=== PATIENT | male | born 1940 | race Caucasian/White ===

== ENCOUNTER 2016-06-23 10:33 | Emergency (ER) | payer MEDICARE, BC ==
[~2016-06-23] VITALS: Ht 180.3 cm; Wt 95.5 kg
[~2016-06-23 10:33] MED LIST: ATIVAN1 MG PO; ATORVASTATIN CA10 MG PO; LANTUS100 MG/ML SC; LISINOPRIL20 MG PO; SPIRIVA HANDIHALER IN; VICTOZA18 MG/3 ML SC
[2016-06-23] MEDS ORDERED: LORAZEPAM0.5 MG PO (11:07)
[2016-06-23] MEDS ORDERED: FLOXIN OTIC0.3 % OD (11:27)
[2016-06-23] MEDS ORDERED: AMOXICILLIN/PO500 MG PO (11:27)
[2016-06-23 11:35] VITALS: BP 140/72
[2016-06-23] MEDS ORDERED: FLOXIN OTIC0.3 % AD (11:35)
[2016-06-23] MEDS ORDERED: ATIVAN1 MG PO (11:42)
[2016-06-23] MEDS ORDERED: LANTUS100 UNIT/M SC (11:42)
== END 2016-06-23 11:35 | disposition home or self-care (01) ==
LOC: ED 10:33
DX: H66.91 Otitis media, unspecified, right ear (principal); H92.01 Otalgia, right ear; H93.8X1 Other specified disorders of right ear

== ENCOUNTER → 2018-04-30 | Outpatient (REF) | payer MEDICARE, BC ==
[~2018-04-30] MED LIST changes: +AMOXICILLIN/PO500 MG PO; +FLOXIN OTIC0.3 % AD; +FLOXIN OTIC0.3 % OD; +LANTUS100 UNIT/M SC; +LORAZEPAM0.5 MG PO
[2018-04-30 10:20] LABS: ALBUMIN 4.2 g/dL (3.2-5.0); BILIRUBIN, TOTAL 0.6 mg/dL (0.0-1.4); CREATININE 1.9 mg/dL (0.7-1.3); TOTAL PROTEIN 7.2 g/dL (6.3-8.2)
[2018-04-30 10:24] LABS: POTASSIUM 5.2 mmol/l (3.5-5.1)
[2018-04-30 10:52] LABS: TSH, 3RD GENERATION 5.83 uIU/mL (0.47 - 4.68)
== END | disposition home or self-care (01) ==
LOC: LAB 09:17
PROVIDERS: ATTEND Internal Medicine Endocrinology, Diabetes & Metabolism
DX: E03.9 Hypothyroidism, unspecified (principal); E11.42 Type 2 diabetes mellitus with diabetic polyneuropathy; E55.9 Vitamin D deficiency, unspecified

== ENCOUNTER 2018-08-21 09:18 | Inpatient (IN) | payer MEDICARE, BC ==
[~2018-08-21] VITALS: Ht 180.3 cm; Wt 91.3 kg
--- NOTE | 2018-08-21 09:25 | NUR ---
PT IMMEDIATELY TO ROOM 9 FOR EVALUATION. SIGNIFICANT OTHER AT BEDSIDE.
[2018-08-21] MEDS ORDERED: FIASP100 UNIT/M SC (09:50)
[2018-08-21] MEDS ORDERED: ASPIRIN ADULT L81 MG PO (09:54)
[2018-08-21] MEDS ORDERED: JARDIANCE10 MG PO (09:55)
[2018-08-21] MEDS ORDERED: PRESERVISION PO (09:58)
[2018-08-21 10:08] LABS: HEMATOCRIT 40.7 % (39.0-50.0); HEMOGLOBIN 12.8 g/dl (14.0-18.0); IMMATURE GRANULOCYTES 1.5 % (0.0-5.0); MEAN CELL VOLUME 97.8 fL CALC (80.0-100.0); MEAN CORPUSCULAR HGB 30.8 pG CALC (26.0-32.0); MEAN CORPUSCULAR HGB CONC 31.4 g/L CALC (32.0-36.0); NEUT# 19.71 thou/uL (1.82-7.42); RED BLOOD COUNT 4.16 mill/uL (4.70-6.10); RED CELL DISTRI WIDTH 13.9 % (11.5-15.5)
--- NOTE | 2018-08-21 10:20 | NUR ---
PT RESTING ON STRETCHER, OFFERS NO NEW COMPLAINTS, CALL OCONNOR WITHIN REACH
[2018-08-21 10:30] LABS: ALBUMIN 3.4 g/dL (3.2-5.0); BILIRUBIN, TOTAL 0.7 mg/dL (0.0-1.4); CREATININE 1.7 mg/dL (0.7-1.3); POTASSIUM 4.8 mmol/l (3.5-5.1); TOTAL PROTEIN 7.4 g/dL (6.3-8.2)
--- NOTE | 2018-08-21 11:06 | NUR ---
PT RESTING, COUGH PRODUCTIVE OF GREENISH KEMP SPUTUM SPECIEMN SENT EARLIER, VISITORS AT BEDSIDE, WILL CONTINUE TO MONITOR.
--- NOTE | 2018-08-21 11:19 | NUR ---
PATIENT AND SPOUSE AWARE OF PLANNED ADMISSION. NO OBJECTIONS VOICED
--- NOTE | 2018-08-21 12:47 | NUR ---
REPORT CALLED TO SIA CORDOBA ON MED SURG ROOM 261 ASSIGNED ALONG WITH TELE BOX [id number]
--- NOTE | 2018-08-21 12:55 | NUR ---
PT TRANSFERRED TO MED SURG VIA WHEELCHAIR, ALL BELONGINGS SENT WITH PT. TELE BOX 0633 ON PT
--- NOTE | 2018-08-21 13:00 | NUR ---
PT ARRIVED TO FLOOR @ 1255 VIA WC ACCOMPANIED BY BERYL ZAPATA. PT AMBULATES INDEPENDENTLY. REPORTS GENERALIZED WEAKNESS. DENIES DIZZINESS. NO PAIN. REPORTING OF CONCERNS ENCOURAGED. PT ORIENTED TO ROOM AND EQUIPMENT. CALL LIGHT REVIEWED AND IN REACH. PLAN OF CARE DISCUSSED. PT STATES UNDERSTANDING.
--- NOTE | 2018-08-21 13:15 | NUR ---
PT LEFT FLOOR VIA WC ACCOMPANIED BY VOLUNTEER, DESTINATION CT.
[2018-08-21 13:19] VITALS: BP 97/60
--- NOTE | 2018-08-21 13:35 | NUR ---
PT ARRIVED BACK TO ROOM. REPORTS TOLERATING CT WELL.
[2018-08-21 16:12] VITALS: BP 138/71
--- NOTE | 2018-08-21 18:16 | NUR ---
PT CONSENTED TO HIV LAB TESTING SUGGESTED BY DR. ARAGON. REQUESTS RESULTS WHEN BACK. PT. NOTIFIED RESULTS WERE NEGATIVE.
--- NOTE | 2018-08-21 19:34 | NUR ---
PT. SITTING UP IN BED WITH NO DISTRESS NOTED. DENIES PAIN AND REPORTS HE FEELS MUCH BETTER. ASSESSEMENT COMPLETED AND UPDATED ON POC. IV SITE PATENT AND SL. SNACK PROVIDED. CALL LIGHT IS IN REACH. WILL CONTINUE TO MONITOR.
[2018-08-21 19:40] VITALS: BP 129/47
[2018-08-21 21:47] VITALS: BP 118/48
--- NOTE | 2018-08-21 21:47 | NUR ---
REASSESSED B/P 118/48 AND SCHED MEDICATIONS GIVEN. URINAL EMPTIED. CALL LIGHT IS IN REACH. WILL CONTINUE TO MONITOR.
[2018-08-21 23:53] VITALS: BP 118/42
--- NOTE | 2018-08-21 23:57 | NUR ---
RESTING IN BED WITH NO DISTRESS NOTED. INTERMITTENT PRODUCTIVE COUGH. VS OBTAINED AND SCHE ABT HUNG. VOICES NO CONCERNS. CALL LIGHT IS IN REACH.
--- NOTE | 2018-08-22 02:04 | NUR ---
PT. RESTING IN BED ON LEFT SIDE; DENIES NEEDS AND VOICES NO CONCERNS. CALL LIGHT IS IN REACH.
[2018-08-22 04:00] VITALS: BP 106/54
[2018-08-22 05:20] LABS: ALKALINE PHOSPHATASE 146 u/l (38-126); BUN 40 mg/dL (8-23); BUN/CREATININE RATIO 26 (12-20 (CALC)); CHLORIDE 112 mmol/l (95-108); CREATININE 1.5 mg/dL (0.7-1.3); GFR 45 ML/MIN (>=60 (CALC)); GFR FOR AFR.AMER. 55 ML/MIN (>=60 (CALC)); LIPASE 44 u/l (23-300); MAGNESIUM 2.7 mg/dL (1.6-2.3); POTASSIUM 4.8 mmol/l (3.5-5.1); SGOT/AST 47 u/l (19-48); SODIUM 140 mmol/l (137-146)
[2018-08-22 05:25] LABS: IMMATURE GRANULOCYTES 1.6 % (0.0-5.0); MEAN CELL VOLUME 96.1 fL CALC (80.0-100.0); MEAN CORPUSCULAR HGB 30.7 pG CALC (26.0-32.0); NEUT# 11.78 thou/uL (1.82-7.42); RED BLOOD COUNT 3.32 mill/uL (4.70-6.10); RED CELL DISTRI WIDTH 13.9 % (11.5-15.5)
[2018-08-22 05:26] LABS: ALBUMIN 2.3 g/dL (3.2-5.0); AMYLASE < 30 u/l (30-110); ANION GAP 11 (6-22 (CALC)); BILIRUBIN, TOTAL 0.4 mg/dL (0.0-1.4); CARBON DIOXIDE 22 mmol/l (22-30); TOTAL PROTEIN 5.6 g/dL (6.3-8.2)
[2018-08-22 05:52] LABS: HEMATOCRIT 31.9 % (39.0-50.0); HEMOGLOBIN 10.2 g/dl (14.0-18.0)
--- NOTE | 2018-08-22 06:30 | NUR ---
PT. IS ASSISTED WITH A SHOWER AND LINENS CHANGED. PROVIDED WITH MESCH PAINTIES AND PAD. INCENTIVE SPIROMTER EDUCATION PROVIDED AND PT. IS ABLE TO PULL 750 AND DID 5 REPS; EDUCATED ON USE OF 10X'S AN HOUR WHILE AWAKE; VERBALIZES UNDERSTANDING. PT. ASSISTED INTO RECLINER. DENIES NEEDS. BS IS 70; JUICE PROVIDED. ENCOURAGED TO CALL FOR ANY NEEDS. CALL LIGHT IS IN REACH.
--- NOTE | 2018-08-22 07:22 | NUR ---
REPORT RECEIVED FROM BERYL SMALL. PT SLEEPING AT THIS TIME. CALL LIGHT WITHIN REACH.
[2018-08-22 07:46] VITALS: BP 127/45
--- NOTE | 2018-08-22 08:23 | NUR ---
PT SITTING IN CHAIR AT BEDSIDE. PLAN OF CARE DISCUSSED. PT DENIES PAIN/DISCOMFORT AT THIS TIME. REPORTING OF CONCERNS ENCORUAGED. PLAN OF CARE DISCUSSED. INCENTIVE SPIROMETER USE ENCOURAGED. CALL LIGHT REVIEWED AND IN REACH. PT STATES UNDERSTANDING.
[2018-08-22 11:00] VITALS: BP 111/33
--- NOTE | 2018-08-22 12:38 | NUR ---
DR. ARAGON IN TO SEE PT. PLAN OF CARE UPDATED. PT LEFT FLOOR VIA WC ACCOMPANIED BY VOLUNTEER, DESTINATION ECHO.
--- NOTE | 2018-08-22 14:01 | NUR ---
PT RETURNED TO FLOOR VIA WC FROM ECHO, PT STATES TOLERATED TESTING WELL.
[2018-08-22 16:05] VITALS: BP 106/71
--- NOTE | 2018-08-22 16:38 | NUR ---
PT SUPINE IN BED. INQUIRING ABOUT IV ABX SCHEDULED. MED SCHEDULES REVIEWED. PT STATES UNDERSTANDING.
[2018-08-22 19:09] VITALS: BP 129/57
--- NOTE | 2018-08-23 00:04 | NUR ---
IV ZOSYN INITIATED, VITALS OBTAINED. PT VOICES NO NEEDS OR COMPLAINTS AT THIS TIME. CALL LIGHT IN REACH,CONTINUE TO MONITOR.
[2018-08-23 00:30] VITALS: BP 123/56
[2018-08-23 04:06] VITALS: BP 134/73
[2018-08-23 05:14] LABS: HEMATOCRIT 32.9 % (39.0-50.0); HEMOGLOBIN 10.5 g/dl (14.0-18.0); IMMATURE GRANULOCYTES 1.6 % (0.0-5.0); MEAN CELL VOLUME 95.6 fL CALC (80.0-100.0); MEAN CORPUSCULAR HGB 30.5 pG CALC (26.0-32.0); MEAN CORPUSCULAR HGB CONC 31.9 g/L CALC (32.0-36.0); NEUT# 10.79 thou/uL (1.82-7.42); RED BLOOD COUNT 3.44 mill/uL (4.70-6.10); RED CELL DISTRI WIDTH 13.9 % (11.5-15.5)
[2018-08-23 05:41] LABS: ALBUMIN 2.4 g/dL (3.2-5.0); BILIRUBIN, TOTAL 0.4 mg/dL (0.0-1.4); CREATININE 1.4 mg/dL (0.7-1.3); MAGNESIUM 2.5 mg/dL (1.6-2.3); POTASSIUM 4.7 mmol/l (3.5-5.1); TOTAL PROTEIN 5.8 g/dL (6.3-8.2)
--- NOTE | 2018-08-23 06:10 | NUR ---
IV LEAKING, REMOVED IV, CATHETER INTACT. NEW IV OBTAINED AFTER 1 ATTEMPT.ZOSYN INFUSION CONTINUED. PT VOICES NO NEEDS OR COMPLAINTS AT THIS TIME. CALL LIGHT IN REACH,CONTINUE TO MONITOR.
--- NOTE | 2018-08-23 07:00 | NUR ---
SHIFT CHANGE REPORT, PT SLEEPING BUT AWAKENED TO VERBAL STIMULI, NO C/O PAIN, COUGHING AT THIS TIME, TELE MONITOR IN PLACE, ALL NEEDS ADDRESSED, CALL OCONNOR IN REACH.
[2018-08-23 09:07] VITALS: BP 115/62
[2018-08-23 11:05] VITALS: BP 138/63
--- NOTE | 2018-08-23 12:00 | NUR ---
RESTING IN BED, DR ARAGON ROUNDED AND DISCUSSED PLAN OF CARE TO INTRODUCE NEW ANTIBIOTIC FOR CONTINUED CARE, PT STATED UNDERSTANDING.
[2018-08-23 16:02] VITALS: BP 131/63
--- NOTE | 2018-08-23 16:49 | NUR ---
RELAXING IN ROOM, ALL NEEDS ADDRESSED.
--- NOTE | 2018-08-23 19:27 | NUR ---
REPORT FROM PARVIN CORDOBA. PT ALERT AND ORIENTED X3. RESPIRATIONS EVEN AND UNLABORED. DENIES ANY PAIN OR DISCOMFORT. IV SITE APPEARS HEALTHY. HAS NO CURRENT WANTS OR NEEDS. DISCUSSED POC. PT VERBALIZED UNDERSTANDING. CALL LIGHT WITHIN REACH. WILL CONTINUE TO MONITOR.
[2018-08-23 19:29] VITALS: BP 127/56
--- NOTE | 2018-08-23 20:34 | NUR ---
PT OOB AMBULATING IN [facility].
[2018-08-24 00:04] VITALS: BP 120/50
--- NOTE | 2018-08-24 00:18 | NUR ---
PT RESTING IN BED, WAKES EASILY. DENIES ANY PAIN OR DISCOMFORT. IV SITE FLUSHED AND IV ABT INIATED. NO DISTRESS NOTED. CALL LIGHT WITHIN REACH. WILL CONTINUE TO MONITOR.
[2018-08-24 04:06] VITALS: BP 110/59
--- NOTE | 2018-08-24 04:44 | NUR ---
PT RESTING IN BED. RESPIRATIONS EVEN AND UNLABORED. DENIES ANY PAIN OR DISCOMFORT. HAS NO CURRENT WANTS OR NEEDS. STEEP TENDER IN PLACE. CALL LIGHT WITHIN REACH. WILL CONTINUE TO MONITOR.
[2018-08-24 05:45] LABS: HEMATOCRIT 30.1 % (39.0-50.0); HEMOGLOBIN 9.4 g/dl (14.0-18.0); IMMATURE GRANULOCYTES 2.5 % (0.0-5.0); MEAN CELL VOLUME 97.4 fL CALC (80.0-100.0); MEAN CORPUSCULAR HGB 30.4 pG CALC (26.0-32.0); MEAN CORPUSCULAR HGB CONC 31.2 g/L CALC (32.0-36.0); NEUT# 7.34 thou/uL (1.82-7.42); RED BLOOD COUNT 3.09 mill/uL (4.70-6.10); RED CELL DISTRI WIDTH 13.9 % (11.5-15.5)
[2018-08-24 05:58] LABS: ALBUMIN 2.3 g/dL (3.2-5.0); BILIRUBIN, TOTAL 0.3 mg/dL (0.0-1.4); CREATININE 1.4 mg/dL (0.7-1.3); MAGNESIUM 2.3 mg/dL (1.6-2.3); POTASSIUM 4.9 mmol/l (3.5-5.1); TOTAL PROTEIN 5.7 g/dL (6.3-8.2)
[2018-08-24 07:25] VITALS: BP 119/51
--- NOTE | 2018-08-24 07:25 | NUR ---
PT IS RELAXING IN BED WITH NO DISTRESS NOTED. IV SITE IS FREE FROM REDNESS OR EDEMA. NOTED. BREATH SOUNDS ARE CLEAR AND DIMINISHED, HR IS REG,PULSES ARE STRONG X4, ABD IS SOFT WITH ACTIVE BS. TELE MONITOR IN PLACE. ISP ON THE BED WITH PT. CONTINUE TO OSBERVE AND MONITOR.
[2018-08-24 11:00] VITALS: BP 115/59
--- NOTE | 2018-08-24 12:00 | NUR ---
PT EATING HIS LUNCH, NO DISTRESS NOTED. IV SITE IS FREE FROM REDNESS OR EDEMA.
--- NOTE | 2018-08-24 13:00 | NUR ---
AND GOMEZ SANTANA IN TO VISIT WITH PT.
--- NOTE | 2018-08-24 13:13 | NUR ---
PT AMBULATING IN THE [place] WITH FAMILY
[2018-08-24] MEDS ORDERED: ROBITUSSIN AC10 ML PO (13:49)
[2018-08-24] MEDS ORDERED: Levaquin PO (13:49)
[2018-08-24] MEDS ORDERED: MEDDOSEPAK PO (14:22)
--- NOTE | 2018-08-24 15:33 | NUR ---
PT RECEIVED DISCHARGE INSTRUCTIONS AND VERBALIZED UNDERSTANDING. IV SITE AND TELE MONITOR IS INTACT. AND TAKEN OFF. FAMILY IN THE ROOM ENCOURAGED PT TO TAKE IT EASY WHEN HE GETS HOME NO STRENUOUS ACTIVITY. PT STATED" I WILL USE MY CANE" CONTINUE TO OSBERVE AND MONITOR.
--- NOTE | 2018-08-24 15:43 | NUR ---
IV SITE DISCONTINEUD CATHETER INTACT NO REDNESS OR EDEMA FAMILY IN THE ROOM. DISCHARGE INSTRUCTIONS GIVEN WITH LITERATURE ON ILLNESS AND MEDICATIONS. Discharge instructions given. Patient verbalizes understanding of same. Discharged in stable condition via Wheelchair to Home with family. All belongings sent with pt.
== END 2018-08-24 15:42 | disposition home or self-care (01) | DRG 194 ==
LOC: ED 09:18 → ED-I 10:44 → ED 11:26 → MS2 11:27
PROVIDERS: Emergency Medicine; ADMIT Internal Medicine Nephrology; ATTEND Internal Medicine Nephrology
DX: J18.9 Pneumonia, unspecified organism (principal); J44.0 Chronic obstructive pulmonary disease with (acute) lower respiratory infection; J44.1 Chronic obstructive pulmonary disease with (acute) exacerbation; I45.6 Pre-excitation syndrome; I12.9 Hypertensive chronic kidney disease with stage 1 through stage 4 chronic kidney disease, or unspecified chronic kidney disease; E11.22 Type 2 diabetes mellitus with diabetic chronic kidney disease; N18.3 Chronic kidney disease, stage 3 (moderate); E78.5 Hyperlipidemia, unspecified; I95.9 Hypotension, unspecified; D63.8 Anemia in other chronic diseases classified elsewhere; Z79.4 Long term (current) use of insulin
CPT/HCPCS: G0378

== ENCOUNTER 2018-12-15 12:31 | Emergency (ER) | payer MEDICARE, BC ==
[~2018-12-15] VITALS: Ht 180.3 cm; Wt 95.4 kg
[~2018-12-15 12:31] MED LIST changes: +ASPIRIN ADULT L81 MG PO; +FIASP100 UNIT/M SC; +JARDIANCE10 MG PO; +Levaquin PO; +MEDDOSEPAK PO; +PRESERVISION PO; +ROBITUSSIN AC10 ML PO
[2018-12-15 13:07] LABS: HEMATOCRIT 39.1 % (39.0-50.0); HEMOGLOBIN 12.9 g/dl (14.0-18.0); IMMATURE GRANULOCYTES 0.2 % (0.0-5.0); MEAN CELL VOLUME 93.3 fL CALC (80.0-100.0); MEAN CORPUSCULAR HGB 30.8 pG CALC (26.0-32.0); NEUT# 3.25 thou/uL (1.82-7.42); RED BLOOD COUNT 4.19 mill/uL (4.70-6.10); RED CELL DISTRI WIDTH 12.9 % (11.5-15.5)
[2018-12-15 13:29] LABS: ACT PARTIAL THROMBO TIME 25.4 SECONDS (20.0-32.5); PROTHROMBIN TIME 10.7 SECONDS (9.0-12.5)
[2018-12-15 13:33] LABS: ALKALINE PHOSPHATASE 68 u/l (38-126); ANION GAP 14 (6-22 (CALC)); BUN 30 mg/dL (8-23); BUN/CREATININE RATIO 21 (12-20 (CALC)); CARBON DIOXIDE 21 mmol/l (22-30); CHLORIDE 110 mmol/l (95-108); CREATININE 1.5 mg/dL (0.7-1.3); ETHYL ALCOHOL 0 mg/dl (0-30); GFR 45 ML/MIN (>=60 (CALC)); GFR FOR AFR.AMER. 55 ML/MIN (>=60 (CALC)); MAGNESIUM 2.2 mg/dL (1.6-2.3); POTASSIUM 4.7 mmol/l (3.5-5.1); SGOT/AST 26 u/l (19-48); SODIUM 140 mmol/l (137-146)
[2018-12-15 13:40] LABS: ALBUMIN 4.4 g/dL (3.2-5.0); BILIRUBIN, TOTAL 0.6 mg/dL (0.0-1.4)
[2018-12-15 14:30] LABS: URINE BILIRUBIN - DIPSTICK NEGATIVE (NEGATIVE); URINE BLOOD DIPSTICK NEGATIVE (NEGATIVE); URINE COLOR YELLOW; URINE GLUCOSE - DIPSTICK NEGATIVE (NEGATIVE); URINE KETONE NEGATIVE (NEGATIVE); URINE LEUK ESTERASE NEGATIVE (NEGATIVE); URINE NITRITE - DIPSTICK NEGATIVE (Negative); URINE PH 5.5 (4.5-8.0); URINE PROTEIN - DIPSTICK NEGATIVE (NEG-TRACE); URINE SPECIFIC GRAVITY 1.015; URINE UROBILINOGEN - DIPSTICK 0.2 E.U./dL (0.2)
[2018-12-15 14:42] LABS: BARBITURATES NEGATIVE (NEGATIVE); COCAINE NEGATIVE (NEGATIVE); METHADONE NEGATIVE (NEGATIVE); OXCYCODONE NEGATIVE (NEGATIVE); TETRAHYDROCANNABIONOL NEGATIVE (NEGATIVE); TRICYLIC ANTIDEPRESSANTS NEGATIVE (NEGATIVE)
[2018-12-15 15:25] VITALS: BP 169/70
== END 2018-12-15 15:25 | disposition home or self-care (01) ==
LOC: ED 12:31
DX: R55 Syncope and collapse (principal); E86.0 Dehydration; E11.22 Type 2 diabetes mellitus with diabetic chronic kidney disease; I12.9 Hypertensive chronic kidney disease with stage 1 through stage 4 chronic kidney disease, or unspecified chronic kidney disease; N18.9 Chronic kidney disease, unspecified; Z79.4 Long term (current) use of insulin

== ENCOUNTER 2020-08-08 08:35 | Emergency (ER) | payer MEDICARE, BC ==
[~2020-08-08] VITALS: Ht 180.3 cm; Wt 99.8 kg
[~2020-08-08 08:35] MED LIST changes: +LEVOTHYROXIN50 MCG PO; +MULTI VIT PO; +PRESERVISION ARED1 PO; -PRESERVISION PO
[2020-08-08 09:16] LABS: HEMATOCRIT 40.7 % (39.0-50.0); HEMOGLOBIN 13.2 g/dl (14.0-18.0); IMMATURE GRANULOCYTES 0.2 % (0.0-5.0); MEAN CELL VOLUME 97.8 fL CALC (80.0-100.0); MEAN CORPUSCULAR HGB 31.7 pG CALC (26.0-32.0); MEAN CORPUSCULAR HGB CONC 32.4 g/dL CAL (32.0-36.0); NEUT# 3.95 thou/uL (1.82-7.42); RED BLOOD COUNT 4.16 mill/uL (4.70-6.10); RED CELL DISTRI WIDTH 12.4 % (11.5-15.5)
[2020-08-08] MEDS ORDERED: FIASP100 UNIT/M SC (09:27)
[2020-08-08] MEDS ORDERED: LANTUS100 UNIT SC (09:29)
[2020-08-08 09:32] LABS: ALBUMIN 4.4 g/dL (3.2-5.0); BILIRUBIN, TOTAL 0.7 mg/dL (0.0-1.4); CREATININE 1.7 mg/dL (0.7-1.3); POTASSIUM 4.6 mmol/l (3.5-5.1); TOTAL PROTEIN 8.2 g/dL (6.3-8.2)
[2020-08-08 09:39] LABS: PROTHROMBIN TIME 10.8 SECONDS (9.0-12.5)
[2020-08-08 10:00] VITALS: BP 167/68
[2020-08-08] MEDS ORDERED: PREVACID30 M3 PO (15:39)
== END 2020-08-08 10:00 | disposition home or self-care (01) ==
LOC: ED 08:35
PROVIDERS: Emergency Medicine
DX: K60.2 Anal fissure, unspecified (principal); E11.9 Type 2 diabetes mellitus without complications; Z79.4 Long term (current) use of insulin
CPT/HCPCS: S0164

== ENCOUNTER 2020-11-05 09:52 | Inpatient (IN) | payer MEDICARE, BC ==
[~2020-11-05] VITALS: Ht 180.3 cm; Wt 96.0 kg
[~2020-11-05 09:52] MED LIST changes: +LANTUS100 UNIT SC; +PREVACID30 M3 PO
--- NOTE | 2020-11-05 10:00 | NUR ---
PT TO RM 16 VIA EMS STRETCHER FOR B/S TRIAGE.
--- NOTE | 2020-11-05 11:23 | NUR ---
FAMILY MEMBER WALK IN TO ROOM
[2020-11-05 12:01] LABS: BILIRUBIN, TOTAL 0.5 mg/dL (0.0-1.4); CREATININE 1.7 mg/dL (0.7-1.3); POTASSIUM 4.9 mmol/l (3.5-5.1)
[2020-11-05 12:02] LABS: ALBUMIN 3.1 g/dL (3.2-5.0)
[2020-11-05 12:04] LABS: HEMATOCRIT 24.6 % (39.0-50.0); HEMOGLOBIN 7.9 g/dl (14.0-18.0); IMMATURE GRANULOCYTES 2.5 % (0.0-5.0); MEAN CELL VOLUME 100.8 fL CALC (80.0-100.0); MEAN CORPUSCULAR HGB 32.4 pG CALC (26.0-32.0); MEAN CORPUSCULAR HGB CONC 32.1 g/dL CAL (32.0-36.0); RED BLOOD COUNT 2.44 mill/uL (4.70-6.10); RED CELL DISTRI WIDTH 13.3 % (11.5-15.5)
[2020-11-05 12:05] LABS: PLATELET COUNT 63 thou/uL (130-400)
[2020-11-05 12:17] LABS: BAND 12 % (0-8); MANUAL DIFFERENTIAL YES
[2020-11-05 12:18] LABS: IMMATURE CELLS 4 %; PLATELET ESTIMATE MOD DECREASE
--- NOTE | 2020-11-05 15:53 | NUR ---
Reassessment of patient completed. No distress noted. WATER AND PUDDING WAS GAVE IT TO THE PATIENT
--- NOTE | 2020-11-05 16:05 | NUR ---
S: CARMEN COBOS is a 80 M who presents with neutropenic fever. He has a history of rectal cancer currently on chemo, thyroid, diabetes, cholesterol, anal fistula and constipation. All medications in patient's chart were reviewed. O: VS: BP 142/68mmHg , P 62bpm, RR 22bpm ,T 101F W 95kg, [id number], Scr=1.7mg/dL,CrCl= 37ml/min A: Blood culture is pending. P: Patient is on Cefepime 2g IV Q12H. Vancomycin ordered for pharmacy to dose. Start Vancomycin 1.25g IV Q24H. Vancomycin trough is drawn before the 4th dose on 11/08/20 at 0930. Vancomycin goal trough is between 15-20 mcg/ml. Pharmacy will follow and or advise on antibiotics use as needed.
--- NOTE | 2020-11-05 17:00 | NUR ---
ENVIRONMENTAL ISSUES INSTRUCTOR GIVE REPORT TO TATTOOER, PATIENT WAS TRANSFER IN STRETCHER A/O X 4 V/S STABLES
--- NOTE | 2020-11-05 18:16 | NUR ---
1715 PT IN ROOM 252. AO X 3. SKIN PINK WARM AND DRY. PERIRECTAL AREA AND SCROTUM RED AND EXCORIATED. PT WITH HISTORY OF RECTAL CANCER. IV PATENT. BREATH SOUNDS EQUAL AND CLEAR BILAT. UPPER EXPIRATORY WHEEZE AUDIBLE. PT REPORTS HAVING THIS WHEEZE FOR MANY YEARS. 1800 DINNER TRAY GIVEN. BG 206. APPRAISAL MANAGER MD AWARE. WILL ORDER SLIDING SCALE INSULIN. PT WITH HOB ELEVATED, CALL OCONNOR AND BEDSIDE TABLE WITHIN REACH
[2020-11-05 18:20] VITALS: BP 175/99
--- NOTE | 2020-11-05 19:26 | NUR ---
REPORT GIVEN TO SHAHLA CORDOBA AND CINDI CORDOBA
[2020-11-05 20:07] VITALS: BP 151/67
--- NOTE | 2020-11-06 01:59 | NUR ---
PT RESTING WITH EYES CLOSED. SR ON MONITOR TEMP 98.8
[2020-11-06 04:56] VITALS: BP 136/63
[2020-11-06 04:59] LABS: HEMOGLOBIN 7.7 g/dl (14.0-18.0); MEAN CELL VOLUME 101.7 fL CALC (80.0-100.0); MEAN CORPUSCULAR HGB 32.6 pG CALC (26.0-32.0); MEAN CORPUSCULAR HGB CONC 32.1 g/dL CAL (32.0-36.0); RED BLOOD COUNT 2.36 mill/uL (4.70-6.10); RED CELL DISTRI WIDTH 13.6 % (11.5-15.5)
[2020-11-06 05:14] LABS: CREATININE 1.8 mg/dL (0.7-1.3); MAGNESIUM 2.6 mg/dL (1.6-2.3); POTASSIUM 4.9 mmol/l (3.5-5.1)
--- NOTE | 2020-11-06 05:31 | NUR ---
0350 PT C/O CHILLS. TEMP 99.1, HR 124, AND SOILED. PT CHUX AND LINENS CHANGED. PT RESPIRATION BECAME MORE LABORED AND EXP WHEEZES HEARD W/O STETHSCOPE. 0400 RAPID RESPONSE CALLED 0401 BRYNN FRANKLIN RN AND ANUEL VELÁSQUEZ RT ARRIVED AT BEDSIDE 0403 TEMP 100.4 0412 ALBUTEROL NEB TREATMENT GIVEN 0419 EKG COMPLETED 0425 MORNING LABS DRAWN 0430 CHEST X RAY COMPLETE 0435 DR ROMERO NOTIFIED OF RAPID RESPONSE. PT RESPITORY WHEEZES IMPROVED FROM PREVIOUS ASSESMENT. PT REPORTS "FEELING BETTER".
[2020-11-06 05:56] VITALS: BP 135/62
[2020-11-06 08:10] VITALS: BP 145/65
--- NOTE | 2020-11-06 08:10 | NUR ---
RECEIVED LAYING IN SUPINE POSITION ON THE BED, PILLOW UNDER HIS LEFT HIP. STATED HIS BUTTOCKS AND TESTIES ARE VERY SORE, BURNING. GAVE BED BATH AND REPOSITIONED IN BED, AND USED BUTTOCKS CREAM. NOTED EXP. WHEEZES, UNCHANGED SINCE SHIFT REPORT RECEIVED. PT'S COLOR SLIGHTLY PALE, SKIN TURGOR RETURN WITHIN 2 SECONDS. PT. SMILING AND TALKING NOW. 0900: PT. SHIVERING, STATED HE IS A LITTLE NERVOUS MOST OF THE TIME. ENCOURAGED TO TAKE SOME SLOW DEEP BREATHS, SUPPORT GIVEN. 1213: SITTING UP IN THE BED, LOW SEMI-KHOURY'S POSITION, STATED DID NOT WISH TO GET OUT OF BED AT THIS TIME. NO S/S OF DISTRESS, IV INSITU. 1325: SPOKE WITH AJIT SANTANA, NOTIFIED DIFFICULT TO GET A URINE OR STOOL SPECIMEN BECAUSE PT IS INCONTINENT. WILL ATTEMPT TO GET A SPUTUM SPECIMEN REQUESTED.
[2020-11-06] MEDS ORDERED: LOMOTIL2.5 MG PO (12:03)
[2020-11-06] MEDS ORDERED: SILVER SULFA1 % EX (12:07)
[2020-11-06 14:20] VITALS: BP 112/54
--- NOTE | 2020-11-06 15:07 | NUR ---
1400: REC'D REPORT PER BERYL CRISTOBAL. 1420: REC'D PT LYING IN BED AWAKE, RR 26. DEPEND CHANGED WITH CRAM APPLIED BY OPEN AREAS OF GROIN AND BUTTOCK. IV SITE SECURED WITH TEGADERM. 1450: URINE SPECIMEN OBTAINED PER PT, RESULT TO LAB.
[2020-11-06 15:10] LABS: URINE BILIRUBIN - DIPSTICK NEGATIVE (NEGATIVE); URINE BLOOD DIPSTICK SMALL (NEGATIVE); URINE COLOR YELLOW; URINE GLUCOSE - DIPSTICK NEGATIVE (NEGATIVE); URINE KETONE 15 mg/dL (NEGATIVE); URINE LEUK ESTERASE NEGATIVE (NEGATIVE); URINE PROTEIN - DIPSTICK 30 mg/dL (NEG-TRACE); URINE SPECIFIC GRAVITY 1.025; URINE UROBILINOGEN - DIPSTICK 0.2 E.U./dL (0.2)
[2020-11-06 15:21] LABS: URINE NITRITE - DIPSTICK NEGATIVE (Negative); URINE RBC 0-2 RBC/hpf (0-5)
[2020-11-06 18:50] VITALS: BP 148/66
--- NOTE | 2020-11-06 19:01 | NUR ---
1645: pt able to obtain a urine sample, and sputum, result to lab. pt repostioned upright in bed stable.
--- NOTE | 2020-11-06 21:46 | NUR ---
ACCU CK 255 7 UNITS NOVOLOG SQ RIGHT ABD GIVEN PER SLIDING SCALE. SEE MAR FOR TIME 1LNS AT 100ML HOUR VIA PUMP RIGHT AC IV SITE. INTACT PATENT. SEE MAR FOR TIME. PT AAOX3 191 SHIFT CHANGE ASSESSMENT. NO EXPIRATORY WHEEZES NOTED.NO SOB NOTED. O2 NC AT 3L O2SAT AT 97 CONSISTENTLY EVEN WHEN PT TALKING. EVEN UNLABORED. SKIN PWD, QUICK CAP REFILL IN FINGERNAILS. PT MOVE ALL EXTREMITIES SPONTANEOUSLY. NON PRODUCTIVE SPORADIC COUGH. VITALS 99.5 TEMPORAL . 95 HR, RR 20,129/58 BP ALBERTINA SITTING, O2 SAT 97. PERICARE TO EXCORIATED SCROTUM AND BUTTOCK POST STOOL. NEBULIZER TX PER RESPIRATORY. STOOL SPECIMEN TO LAB AT 2019
[2020-11-06 23:10] VITALS: BP 144/63
--- NOTE | 2020-11-06 23:25 | NUR ---
2300 NEW IV SITE STARTED TO LEFT HAND 22G, 1 ATTEMPT BY TW. TAPED SECURE,OPSITE DATE INITIALS TIME. PATENT. TO CONTINUOUS IV FLUIDS ORDERED NS AT 100ML/HR. EXISTING RIGHT AC IV ACCESS REMAINS PATENT, NOW HELPLOCKED. PT C/O CONSTANT PUMP ALARMING WHEN HE USED HIS RIGHT HAND OR ARM OR BENT SAME. ALEYDA CARE POST STOOL/URINE PRODUCTION. LIDOCAINE CREAM TOPICALLY TO EXCORIATED SCROTUM, BILATERAL GROIN FOLDS AND BUTTOCK.MILKY APPEARANCE TO SKIN IN GROIN FOLDS.
[2020-11-07] VITALS (16 sets, daily range): BP systolic 119–150; BP diastolic 55–66
[2020-11-07 05:25] LABS: BILIRUBIN, TOTAL 0.3 mg/dL (0.0-1.4); CREATININE 1.5 mg/dL (0.7-1.3); MAGNESIUM 2.6 mg/dL (1.6-2.3); POTASSIUM 4.5 mmol/l (3.5-5.1); TOTAL PROTEIN 4.9 g/dL (6.3-8.2)
[2020-11-07 05:28] LABS: ALBUMIN 2.4 g/dL (3.2-5.0)
[2020-11-07 05:45] LABS: HEMATOCRIT 20.8 % (39.0-50.0); HEMOGLOBIN 6.9 g/dl (14.0-18.0); MEAN CORPUSCULAR HGB 33.2 pG CALC (26.0-32.0); MEAN CORPUSCULAR HGB CONC 33.2 g/dL CAL (32.0-36.0); RED BLOOD COUNT 2.08 mill/uL (4.70-6.10); RED CELL DISTRI WIDTH 13.6 % (11.5-15.5)
[2020-11-07 05:46] LABS: IMMATURE GRANULOCYTES 2.1 % (0.0-5.0); NEUT# 0.49 thou/uL (1.82-7.42)
--- NOTE | 2020-11-07 06:58 | NUR ---
NO ORDERS RECEIVED FROM DR ROMERO R/T CRITICAL LAB VALUES OF WBC/PLT/HGB.
--- NOTE | 2020-11-07 07:01 | NUR ---
PT WITH 200 MEZA URINE OUTPUT IN URINAL. PT RR UNLABORED, OCCASIONAL EXPIRATORY WHEEZES NOTED. VITALS STABLE AT 0530. GLUCOSE 229 TREATED PER SLIDING SCALE W/ 4UNITS SQ HUMALOG INSULIN. LEFT HAND IV DCD R/T NON PATENCY CATHETER INTACT. 0545 RIGHT AC HEPLOCKED IV SITE REACCESSED FOR INFUSION OF CONTINUOUS IV FLUIDS AND IV ANTIBIOTIC.
--- NOTE | 2020-11-07 08:20 | NUR ---
RECEIVED IN LOW SEMI-KHOURY'S POSITION IN BED, AWAKE AND TALKING. VS WNL, CONTINUES TO WHEEZE INTERMITTENTLY. ABLE TO SIT UP ON THE COMMODE X 1 ASSIST, RETURNED TO BED WITHOUT INCIDENCE. STATED HIS GROIN AND TESTIES FEEL A LOT BETTER TODAY.
--- NOTE | 2020-11-07 12:23 | NUR ---
IV STARTED LT WRIST. 20G WITH ONE STICK. IV RT AC LEAKING, DC'D. IV 20G STARTED RIGHT WRIST ONE STICK. PT AO X 3, SKIN PALE WARM AND DRY. BREATH SOUNDS EAUAL WITH SLIGHT EXPIRATORY WHEEZE RIGHT LOWER LOBE. BLOOD INFUSING
--- NOTE | 2020-11-07 15:37 | NUR ---
1500 NYSTATIN POWDER APPLIED TO GROIN AREA.
--- NOTE | 2020-11-07 17:21 | NUR ---
HR NOTED 133. DR MARTIN AWARE. EKG ORDERED. RT PRESENT TO OBTAIN EKG.
--- NOTE | 2020-11-07 17:51 | NUR ---
PT HAD SMALL SOFT BROWN STOOL. AREA CLEANED, BEDDING CHANGED. REPORT GIVEN TO ED RN
--- NOTE | 2020-11-07 18:19 | NUR ---
PT TRANSPORTED VIA BED TO ED
--- NOTE | 2020-11-07 18:48 | NUR ---
MD ROMERO CALLED TO THE ER AND GIVE THE VERBAL ORDER TO GIVE A 1 LT OF NSS 0.9 X 1 AND NOTIFY AFTER THAT
--- NOTE | 2020-11-07 21:36 | NUR ---
MD ROMERO WAS CALLED AND GIVEN A UPDATED ABOUT THE PATIENT
--- NOTE | 2020-11-07 21:41 | NUR ---
MD ROMERO VERBALIZED THAT HE WAS GOING TO ORDER A AMIODARONE DRIP, HE WAS OK WITH THE HR IN THE 120
--- NOTE | 2020-11-07 22:30 | NUR ---
pt has voided 300cc piero urine
--- NOTE | 2020-11-07 23:13 | NUR ---
W/P/D SKIN [address] T CHANGES NO ECTOPY PT IS SLEEPING WITH OCC.BODY POSITION CHANGES.NO COUGH NO SOB.
--- NOTE | 2020-11-08 01:00 | NUR ---
AWAKENED FROM SLEEP NO COMP OF WEAKNESS NO SWEATS NO DYSPNEA/W/P/D SKIN
--- NOTE | 2020-11-08 04:29 | NUR ---
pt voided 400cc piero urine
[2020-11-08 04:52] LABS: HEMATOCRIT 25.9 % (39.0-50.0); HEMOGLOBIN 8.5 g/dl (14.0-18.0); MEAN CELL VOLUME 97.7 fL CALC (80.0-100.0); MEAN CORPUSCULAR HGB 32.1 pG CALC (26.0-32.0); MEAN CORPUSCULAR HGB CONC 32.8 g/dL CAL (32.0-36.0); NEUT# 1.91 thou/uL (1.82-7.42); RED BLOOD COUNT 2.65 mill/uL (4.70-6.10)
[2020-11-08] MEDS ORDERED: SPIRIVA RE1.25 MCG/A (05:05)
[2020-11-08 05:07] LABS: CREATININE 1.4 mg/dL (0.7-1.3); MAGNESIUM 2.4 mg/dL (1.6-2.3); POTASSIUM 4.6 mmol/l (3.5-5.1)
[2020-11-08 06:02] LABS: IMMATURE GRANULOCYTES 10.8 % (0.0-5.0)
--- NOTE | 2020-11-08 06:10 | NUR ---
PT VOIDED 150CC SAMIR URINE RARE MOSQUITO SPRAYER COUGH NO SOB.W/P/D SKIN
--- NOTE | 2020-11-08 06:55 | NUR ---
REPORT RECEIVED FROM BERYL COBIAN.
--- NOTE | 2020-11-08 06:56 | NUR ---
PT REPORT TO NURSE DESTINI
[2020-11-08 08:30] VITALS: BP 125/60
--- NOTE | 2020-11-08 08:30 | NUR ---
PT SITTING SEMIFOWLERS IN BED. A&OX3. VITALS STABLE ON MONITOR. ACCUCHECK COMPLETED, INSULIN GIVEN PER SS. PT REFUSED BREAKFAST TRAY BUT DID ACCEPT SHAKE. STATES HE DOESNT USUALLY EAT BREAKFAST AT HOME, ONLY THE SHAKE. URINAL PROVIDED. BED IN LOW POSITION, CALL LIGHT WITHIN REACH. NO OTHER CONCERNS VOICED.
--- NOTE | 2020-11-08 10:30 | NUR ---
DNR SIGNED BY PT, SCANNED AND ON FILE. SPOKE WITH PTS REGARDING UPDATE ON PT [facility] PROGNOS[facility]. IV MEDS CONTINUE TO INFUSE WITHOUT DIFFICULTY. NO OTHER CONCERNS VOICED.
--- NOTE | 2020-11-08 10:40 | NUR ---
S: CARMEN COBOS is a 80 M who presents with Neutropenic fever and Pneumonia. He has a history of diabetes, hypertension, hypothyroid, hyperlipidemia, COPD and rectal cancer All medications in patient's chart were reviewed. O: VS: BP 125/60mmHg, P 110bpm, RR 24bpm ,T 96.6F W 95kg, HT 71inches, Scr=1.4mg.dL,CrCl= 56.5ml/min A: Blood culture is pending. Sputum culture show normal respiratory caitie. P: Patient is on cefepime 2g IV Q12H. Vancomycin ordered for pharmacy to dose. Change to Vancomycin 1g IV Q12H. Vancomycin trough is drawn before the 4th dose on 11/09/20 at 0930. Vancomycin goal trough is between 15-20 mcg/ml. Pharmacy will follow and or advise on antibiotics use as needed.
--- NOTE | 2020-11-08 12:30 | NUR ---
PT RESTING, IV ABX COMPLETED. REFUSED LUNCH TRAY BUT ACCEPTED GLUCERNA SHAKE AND PUDDING. VITALS REMAIN STABLE. PT USES URINAL WITHOUT DIFFICULTY. ALL PERSONAL ITEMS WITHIN REACH.
--- NOTE | 2020-11-08 14:30 | NUR ---
PT PROVIDED BLANKETS REQUESTED. NO OTHER CHANGES.
--- NOTE | 2020-11-08 16:05 | NUR ---
PT SITTING UPRIGHT IN BED, TALKING ON PHONE, NO DISTRESS NOTED. STABLE ON MONITOR. ITEMS WITHIN REACH.
[2020-11-08 16:07] VITALS: BP 138/63
--- NOTE | 2020-11-08 17:27 | NUR ---
IV ABX AND INSULIN GIVEN, TOLERATED WELL. DINNER TRAY PROVIDED. REPOSITIONED.
--- NOTE | 2020-11-08 18:37 | NUR ---
RECIEVED REPORT FROM JUNE,RN
--- NOTE | 2020-11-08 19:50 | NUR ---
O2 AT 3 LPM NC. PT A/O. NAD.
--- NOTE | 2020-11-08 19:50 | NUR ---
PT TO FLOOR VIA HOSPITAL BED WITH MASK. ROOM POSTED FOR REVERSE ISOLATION.
[2020-11-08 20:00] VITALS: BP 163/70
--- NOTE | 2020-11-08 20:30 | NUR ---
PATIENT ADMITTED FROM ER HOLDING VIA BED. AWAKE ALERT AND ORIENTEDX3. PATIENT WITH O2 VIA NASAL CANNULA IN PLACE AT 3LPM. O2 SAT AT THIS TIME IS 100%. TELE MONITOR IN PLACE WITH READING OF ST-100. IV SITE TO LEFT WRIST INTACT AND APPEARS HEALTHY AT THIS TIME. PATIENT DOES HAVE RIGHT UPPER CHEST PORT THAT IS NOT ACCESSED AT THIS TIME. PATIENT IS S/P CHEMO AND RADIATION FOR RECTAL CA. WBC AT THIS TIME IS 3.0. PATIENT IS DNR AT THIS TIME. ACCU-CHECK IS 217-COVERED WITH 4UNITS OF HUMALOG PER SLIDING SCALE PROTOCOL. HS SNACK PROVIDED. ORIENTED TO ROOM AND SURROUNDINGS. INSTRUCTED ON USE OF NURSE CALL LIGHT SYSTEM, TV REMOTE AND PHONE. SAFETY PRECAUTIONS REINFORCED. CALL LIGHT IN REACH. WILL CONT TO MONITOR.
[2020-11-09] VITALS: BP 164/65
--- NOTE | 2020-11-09 | NUR ---
PATIENT CALLED AND RESPONDED TO PATIENT ROOM. PATIENT STATES THAT HE HAD BAD DREAM. PATIENT WITH AUDIBLE WHEEZE. RT CALLED FOR RESP TREATMENT. FEELING BETTER AFTER TREATMENT. PATIENT PROVIDED WOUND CARE TO BUTTOCKS, PERINEAL, TESTICLES AND GROIN-WASHED WITH SOAP AND WATER-AREA IS EXCORIATED AND RED. PHOTO TAKEN AND PLACED IN CHART. XYLOCAINE CREAM APPLIED TO BUTTOCKS AND RECTAL AREA. NYSTATIN POWDER APPLIED TO GROIN AND TESTICLES. PATIENT MEDICATED FOR PAIN WITH PERCOCET ORDERED FOR PAIN-06/12. TURNED AND REPOSITIONED. BREIFS WERE REMOVED. VANCO INFUSING ORDERED VIA LEFT WRIST SITE. CALL LIGHT IN REACH. WILL CONT TO MONITOR.
[2020-11-09 04:00] VITALS: BP 135/59
--- NOTE | 2020-11-09 04:00 | NUR ---
PATIENT RESTING IN BED-POSITIONED ON LEFT SIDE. O2 VIA NASAL CANNULA IN PLACE AT 3LPM. RESP ARE EVEN AND UNLABORED. TELE MONITOR IN PLACE-LAST READING WAS SR-89. CALL LIGHT IN REACH. WILL CONT TO MONITOR.
[2020-11-09 06:32] LABS: ALBUMIN 2.4 g/dL (3.2-5.0); ALKALINE PHOSPHATASE 71 u/l (38-126); ANION GAP 11 (6-22 (CALC)); BILIRUBIN, TOTAL 0.4 mg/dL (0.0-1.4); BUN 23 mg/dL (8-23); BUN/CREATININE RATIO 18 (12-20 (CALC)); CARBON DIOXIDE 18 mmol/l (22-30); CHLORIDE 114 mmol/l (95-108); CREATININE 1.3 mg/dL (0.7-1.3); GFR 53 ML/MIN (>=60 (CALC)); GFR FOR AFR.AMER. > 60 ML/MIN (>=60 (CALC)); POTASSIUM 4.5 mmol/l (3.5-5.1); SGOT/AST 29 u/l (19-48); SODIUM 138 mmol/l (137-146); TOTAL PROTEIN 5.1 g/dL (6.3-8.2)
[2020-11-09 06:50] LABS: HEMATOCRIT 24.5 % (39.0-50.0); HEMOGLOBIN 7.8 g/dl (14.0-18.0); MEAN CELL VOLUME 100.4 fL CALC (80.0-100.0); MEAN CORPUSCULAR HGB CONC 31.8 g/dL CAL (32.0-36.0); NEUT# 3.35 thou/uL (1.82-7.42); RED BLOOD COUNT 2.44 mill/uL (4.70-6.10); RED CELL DISTRI WIDTH 15.1 % (11.5-15.5)
[2020-11-09 06:56] LABS: IMMATURE GRANULOCYTES 7.8 % (0.0-5.0)
--- NOTE | 2020-11-09 07:45 | NUR ---
PT LYING IN BED ASLEEP, BEDSIDE REPORT RECVEIVED. PT AWOKEN FOR ASSESSMENT, NO COMPLAINTS/DISTRESS AT THIS TIME.
[2020-11-09 10:45] VITALS: BP 148/59
--- NOTE | 2020-11-09 13:01 | NUR ---
Pt screened by MAMMAL CONTROL AGENT. Pt would benefit from a swallow evaluation given RLL PNA and poor PO intake if medical team agrees.
[2020-11-09 14:30] VITALS: BP 144/64
--- NOTE | 2020-11-09 14:45 | NUR ---
SN PERFORMED CARE TO PERINEUM AND RECTUM. PT IS EXCORIATED D/T CHEMO RADIATION. PT HAS OWN SILVADENE CREAM. PER D CARTEE USE CREAM THEN APPLY NYSTATIN. PT TOLERATED WELL. NO FURTHER COMPLAINTS ISSUES AT THIS TIME. PT REQUESTED DOOR SHUT SO HE CAN NAP
[2020-11-09 19:00] VITALS: BP 155/70
--- NOTE | 2020-11-09 19:59 | NUR ---
PATIENT RESTING IN BED AT THIS TIME AWAKE ALERT AND ORIENTEDX3. PATIENT WITH RESPY VOICE-NORMAL FOR HIS. O2 VIA NASAL CANNULA IN PLACE AT 2LPM. TELE MONITOR IN PLACE. IVF NS PATENT AND INFUSING VIA LEFT WRIST SITE AT 100CC/HR. SITE IS HEALTHY AT THIS TIME. CALL LIGHT IN REACH. WILL CONT TO MONITOR.
--- NOTE | 2020-11-09 22:00 | NUR ---
PATIENT RESTING IN BED WITH O2 VIA NASAL CANNULA IN PLACE AT 2LPM-O2 SAT IS 97%. ACCU-CHECK WAS 194-COVERED WITH HUMALOG 2UNITS SQ PER SLIDING SCALE COVERAGE PROTOCOL. TELE MONITOR IN PLACE-LAST READING WAS SR-91. IVF PATENT AND INFUSING ORDERED. PATIENT WITH AUDIBLE WHEEZE-RESP TREATMENT WAS GIVEN. WOUND CARE TO BUTTOCKS, GROIN, AND TESTICLES WAS PROVIDED. AREA WAS WASHED WITH SOAP AND WATER. BARRIER CREAM APPLIED TO BUTTOCKS AND NYSTATIN POWDER WAS APPLIED TO THE GROIN FOLDS AND TESTICLES. ENCOURAGED PATIENT TO POSITION HIMSELF ON HIS SIDE AND AVOID LYING ON HIS BACK-VERBALIZES UNDERSTANDING. VOIDED 150 YELLOW URINE IN URINAL. SAFETY PRECAUTIONS REINFORCED. CALL LIGHT IN REACH. WILL CONT TO MONITOR.
--- NOTE | 2020-11-09 23:20 | NUR ---
PATIENT RESTING IN BED-POSITONED ON HIS SIDE. VANCO TROUGH WAS 15. 2300 DOSE OF VANCO HUNG ORDERED. CALL LIGHT IN REACH. WILL CONT TO MONITOR.
[2020-11-10] VITALS (9 sets, daily range): BP systolic 110–160; BP diastolic 59–86
--- NOTE | 2020-11-10 02:38 | NUR ---
RECIEVED CALL FROM BETSY IN ER-STATES THAT PATIENT WITH INCREASED HR IN 120-130 AND LOOKS LIKE A-FIB. RESPONDED TO PATIENT ROOM AND PATIENT IS AWAKE AND USING THE URINAL TO VOID YELLOW URINE. PATIENT ALSO VERBALIZED THAT HE IS HAVING SOME CONCERNS ABOUT GOING HOME TODAY-HASN'T BEEN OUT OF BED IN DAYS AND STILL FEELING WEAK. VS TAKEN WITH BP-157/70, HR-125, O2 SAT IS 96 WITH O2 AT 2LPM. PATIENT DENIES ANY PALPATATIONS, CHEST PAIN OR INCREASED SOB. RT CALLED AND EKG WAS DONE. EKG SHOW A-FIB RVR-RATE OF 137. CALL PLACED TO DR. NGUYEN AND NEW ORDER RECIEVED FOR METOPROLOL. WILL ADMINISTER SOON PROFILED ON EMAR. WILL CONT TO MONITOR.
--- NOTE | 2020-11-10 04:20 | NUR ---
RECIEVED CALL BACK FROM BETSY IN ER-PATIENT STILL A-FIB 130'S. PATIENT REMAINS ASYMPTOMATIC. CALL PLACED TO DR. NGUYEN AND NEW ORDERS RECIEVD. WILL MEDICATE SOON PROFILED ON EMAR. WILL CONT TO MONITOR.
--- NOTE | 2020-11-10 05:35 | NUR ---
PATIENT RESTING IN BED-IV SITE TO LEFT WRIST LEAKING. RIGHT UPPER CHEST PORT ACCESSED WITHOUT ANY DIFFICULTY WITH GOOD BLOOD RETURN. CARDIZEM 5MG IVP GIVEN ORDERED-CHECK WITH TELE READING STILL IN 120'S-2ND DOSE OF CARDIZEM 5MG IVP GIVEN AND RECHECKED WITH TELE READING WAS 102. IVF NS PATENT AND INFUSING ORDERED VIA RIGHT CHEST PORT AT 100CC/HR. MAXIPIME INFUSING ORDERED. VS TAKEN AND BP-124/73, HR-85, O2 SAT IS 96% ON O2 AT2LPM. IV SITE TO LEFT WIRIST WAS D/C'ED WITH CATH INTACT. SAFETY PRECAUTIONS REINFORCED. CALL LIGHT IN REACH. WILL CONT TO MONITOR.
[2020-11-10 05:37] LABS: HEMATOCRIT 27.3 % (39.0-50.0); HEMOGLOBIN 8.6 g/dl (14.0-18.0); MEAN CELL VOLUME 99.3 fL CALC (80.0-100.0); MEAN CORPUSCULAR HGB 31.3 pG CALC (26.0-32.0); MEAN CORPUSCULAR HGB CONC 31.5 g/dL CAL (32.0-36.0); NEUT# 4.41 thou/uL (1.82-7.42); RED BLOOD COUNT 2.75 mill/uL (4.70-6.10)
[2020-11-10 05:45] LABS: IMMATURE GRANULOCYTES 9.4 % (0.0-5.0)
[2020-11-10 05:57] LABS: ALBUMIN 2.6 g/dL (3.2-5.0); ALKALINE PHOSPHATASE 88 u/l (38-126); ANION GAP 11 (6-22 (CALC)); BILIRUBIN, TOTAL 0.4 mg/dL (0.0-1.4); BUN 21 mg/dL (8-23); BUN/CREATININE RATIO 17 (12-20 (CALC)); CARBON DIOXIDE 19 mmol/l (22-30); CHLORIDE 111 mmol/l (95-108); CREATININE 1.2 mg/dL (0.7-1.3); GFR 58 ML/MIN (>=60 (CALC)); GFR FOR AFR.AMER. > 60 ML/MIN (>=60 (CALC)); POTASSIUM 4.6 mmol/l (3.5-5.1); SODIUM 137 mmol/l (137-146); TOTAL PROTEIN 5.4 g/dL (6.3-8.2)
[2020-11-10 05:58] LABS: SGOT/AST 59 u/l (19-48)
--- NOTE | 2020-11-10 07:05 | NUR ---
REPORT RECEIVED FROM BERYL BULL
--- NOTE | 2020-11-10 08:35 | NUR ---
PT RESTING IN SEMI FOWLERS POSITION,A&O X3;VS OBTAINED AND ASSESSMENT COMPLETED;PT DENIES ANY CURRENT PAIN OR DISCOMFORTS,PAIN SCALE AND REPORTING EDUCATED;RESPIRATIONS SHALLOW ON O2 @ 2L VIA NC, NON-PRODUCTIVE COUGH NOTED;ABDOMEN SOFT ON PALPATION AND ACTIVE IN ALL 4 QUADRANTS;WEAK EPEDAL PULSES;WOUNDS AND SCALING NOTED TO COCCYX AND GROIN FOLDS R/T RADIATION THERPAY;RT CHEST PORT INFUSING NS @ 100ML/HR, SITE APPEARS HEALTHY;500CC BOLUS GIVEN AT THIS TIME PER ORDER;ACCUCHECK 217, PT COVERED WITH SLIDING SCALE INSULIN PER ORDER;PT DENIES ANY ADDITIONAL NEEDS AND IS ENCOURAGED TO CALL FOR ASSISTANCE IF NEEDED;FALL PRECAUTIONS IN PLACE WITH BED IN THE LOWEST POSITION AND CALL LIGHT IN REACH;WILL CONTINUE TO MONITOR
--- NOTE | 2020-11-10 09:56 | NUR ---
PER CHRISTY, ER TELE BLUEBERRY GROWER. PT CONVERED BACK TO SR 90'S.
--- NOTE | 2020-11-10 10:02 | NUR ---
S: CARMEN COBOS is a 80 M who presents with Neutropenic fever and PNA. He has a history of Rectal cancer, hyperthyroid, diabetes, hyperlipidemia, hypertension and COPD. All medications in patient's chart were reviewed. O: VS: BP 144/86, P 123bpm, RR 17bpm,T 97.4F W 96kg, HT 71inches, Scr=1.2 mg/dL,CrCl=66.7 ml/min A: Blood culture is pending. Sputum culture show normal respiratory caitie. P: Patient is on cefepime 2g IV Q12H. Vancomycin ordered for pharmacy to dose. Continue Vancomycin 1g IV Q12H. Vancomycin trough is drawn before the 4th dose on 11/11 @ 1030 Vancomycin goal trough is between 15-20 mcg/ml. Pharmacy will follow and or advise on antibiotics use as needed.
--- NOTE | 2020-11-10 10:10 | NUR ---
PHYSICAL THERAPY AT BEDSIDE
--- NOTE | 2020-11-10 10:11 | NUR ---
ZORAIDA, ANRP AT BEDSIDE
--- NOTE | 2020-11-10 11:07 | NUR ---
Pt seen this am for treatment. He was able to move bed covers himself and use bed rail to move to sitting. Sitting balance was good. Pt moved sit to stand with SBA/CGA. He was able to ambulate with RW 2 x 20' with CGA, no LOB was noted, IV pole and O2 managed by therapist. 02 sats 95 t0 98%, HR 98 to 104. AMPAC 14. Pt was left in chair with [address], bedside tray in front of him and call garcia in reach. Gait belt and non skid socks in place.
--- NOTE | 2020-11-10 11:20 | NUR ---
RT AT BEDSIDE OBTAINING EKG.
--- NOTE | 2020-11-10 11:45 | NUR ---
PT RESTING IN SEMI FOWLERS POSITION,RE-POSITIONED INTO RECLINER PER REQUEST;RESPIRATIONS EVEN AND UNLABORED ON O2 @ 2L VIA NC;PT DENIES ANY CURRENT PAIN OR NEEDS;TELE MONITORING IN PLACE;RIGHT CHEST PORT PATENT INFUSING NS PER ORDER AND ABX STARTED AT THIS TIME;ACCUCHECK 237, PT COVERED WITH SLIDING SCALE INSULIN PER ORDER;PT ENCOURAGED TO CALL FOR ASSISTANCE IF NEEDED;FALL PRECAUTIONS IN PLACE WITH CALL LIGHT IN REACH;WILL CONTINUE TO MONITOR
--- NOTE | 2020-11-10 14:00 | NUR ---
ASSISTED BED BATH PROVIDED BY BERYL GOLDEN AND SILVIA BARNES;WOUND CARE ALSO PROVIDED AT THIS TIME,PT TOLERATED WELL;WILL CONTINUE TO MONITOR
--- NOTE | 2020-11-10 16:00 | NUR ---
PT RESTING IN SEMI FOWLERS POSITION;RESPIRATIONS EVEN AND UNLABORED ON O2 @ 2L VIA NC;PT DENIES ANY CURRENT PAIN OR DISCOMFORTS;TELE MONITORING IN PLACE;RT CHEST PORT CONTINUES TO INFUSE NS @ 100ML/HR,SITE APPEARS HEALTHY;PT ENCOURAGED TO CALL FOR ASSISTANCE IF NEEDED;FALL PRECAUTIONS IN PLACE WITH CALL LIGHT IN REACH;WILL CONTINUE TO MONITOR
--- NOTE | 2020-11-10 19:59 | NUR ---
PATIENT RESTING IN BED AT THIS TIME. AWAKE ALERT AND ORIENTEDX3. PATIENT WITH O2 VIA NASAL CANNULA IN PLACE AT 2LPM. PATIENT HAS ASKED ABOUT GETTING INDWELLING FIGUEROA CATH DUE TO MULTIPLE SKIN ISSUES TO BUTTOCKS, PERINEAL AREA, GROIN AND TESTICLES. CALL PLACED TO DR. NGUYEN AND ORDER RECEIVED. CONSENT WAS OBTAINED. #16 DANISH FIGUEROA CATH WAS INSERTED WITHOUT ANY DIFFICULTY DRAINING YELLOW URINE. PATIENT TOLERATED PROCEDURE WELL. IVF NS PATENT AND INFUSING VIA RIGHT UPPER CHEST PORT AT 100CC/HR. SITE IS HEALTHY. TELE MONITOR IN PLACE-LAST READING WAS SR-89. SAFETY PRECAUTIONS REINFORCED. CALL LIGHT IN REACH. WILL CONT TO MONITOR.
--- NOTE | 2020-11-10 21:15 | NUR ---
RESTING IN BED WITH O2 VIA NASAL CANNULA IN PLACE. ACCU-CHECK 210-COVERED WITH HUMALOG 4UINTS SQ PER SS COVERAGE PROTOCOL. PROVIDED WITH HS SNACL. PATIENT WITH SMALL AMT OF BLOODY DRAINAGE NOTED AROUND THE INSERTION SITE OF THE FIGUEROA CATH, PROVIDED WITH FIGUEROA CATH CARE USING SOAP AND WATER. PROVIDED WITH WOUND CARE TO BUTTOCKS, GROIN FOLD AND TESTICLES WELL WITH SOAP AND WATER. SILVADENE CREAM APPLIED WO BUTTOCKS AND NYSTATIN POWDER TO GROIN FOLD AND TESTICLS. THIS AREA IS STARTING TO CLEAR UP. LESS RED AND MOIST. ENCOURAGED PATIENT TO STAY OFF HIS BACK AND POSITION ON HIS BACK-VERBALIZES UNDERSTANDING. DRESSING TO RIGHT UPPER CHEST PORT LOOSE AND REPLACED-SITE REMAINS HEALTHY WITH IVF NS INFUSING AT 100CC/HR. TELE MONITOR REMAINS IN PLACE AND LAST READING WAS ST-105. FIGUEROA PATENT AND DRAINING CLEAR YELLOW URINE. CALL LIGHT IN REACH. WILL CONT TO MONITOR.
[2020-11-11] VITALS: BP 146/65
--- NOTE | 2020-11-11 00:23 | NUR ---
RESTING IN BED AT THIS TIME POSITONED ON LEFT SIDE WITH O2 VIA NASAL CANNULA IN PLACE. EYES ARE CLOSED. TELE MONITOR IN PLACE WITH LAST READING SR-89. FIGUEROA PATENT AND DRAINING YELLOW URINE, VANCO INFUSING VIA RIGHT UPPER CHEST PORT ORDERED. CALL LIGHT IN REACH. WILL CONT TO MONITOR.
[2020-11-11 02:28] VITALS: BP 185/76
--- NOTE | 2020-11-11 02:35 | NUR ---
BETSY FROM ER CALLED TO TELL US THAT PATIENT TELE WAS OFF. RESPONDED TO ROOM TO FIND PATIENT IN BED WITH FIGUEROA CATH OUT WITH BALLOON STILL INFLATED AND PATIENT WITH BLEEDING FROM HIS PENIS. HIS DESAI NEEDLE WAS ALSO OUT FROM HIS RIGHT UPPER CHEST PORT. HIS TELE MONITOR WAS ALSO OFF. #16 SWEDISH FIGUEROA CATH WAS REINSERTED WITHOUT AND DIFFICULTY-DRAINING PINK TINGED URINE AND STILL HAVING SOME BLEEDING FROM HIS PENIS. RIGHT UPPER CHEST PORT WAS REACCESSED WITHOUT ANY DIFFICULTY WITH GOOD BLOOD RETURN. IVF NS RESTARTED ORDERED. TELE MONITOR WAS REAPPLIED AND READING ST-116. PATIENT IS VERY WHEEZY-RT CALLED AND NEMB TREATMENT WAS GIVEN. PATIENT WITH SOME CONFUSION. ORIENTED TO SELF BUT TALKING ABOUT BAD DREAM THAT HE HAD. CONFUSED TO TIME. ORIENTED TO PLACE. PATIENT WAS GIVEN PERICARE WITH SOAP AND WATER AND CREAM AND NYSTATIN POWDER REAPPLIED. SITTING AT BEDSIDE WITH PATIENT AT THIS ITME FOR PATIENT SAFETY. CALL LISA IN REACH. RECHECK WITH ER AND HR DOWN TO 105 AFTER ALL TREATMENTS WERE COMPLETED. WILL CONT TO MONITOR.
[2020-11-11 04:00] VITALS: BP 163/77
--- NOTE | 2020-11-11 05:00 | NUR ---
PATIENT RESTING IN BED WITH EYES CLOSED. LESS WHEEZY AT THIS TIME. HOB SLIGHTLY ELEVATED. IVF NS PATENT AND INFUSING VIA RIGHT UPPER CHEST PORT AT 100CC/HR. MAXIPIME HUNG ORDERED. FIGUEROA PATENT AND DRAINING PINK TINGED URINE. TELE MONITOR IN PLACE-LAST READING WAS ST-101. CALL LIGHT IN REACH, WILL CONT TO MONITOR.
[2020-11-11 05:52] LABS: HEMATOCRIT 22.7 % (39.0-50.0); HEMOGLOBIN 7.3 g/dl (14.0-18.0); MEAN CELL VOLUME 99.6 fL CALC (80.0-100.0); MEAN CORPUSCULAR HGB CONC 32.2 g/dL CAL (32.0-36.0); NEUT# 3.14 thou/uL (1.82-7.42); RED BLOOD COUNT 2.28 mill/uL (4.70-6.10); RED CELL DISTRI WIDTH 15.1 % (11.5-15.5)
[2020-11-11 05:57] LABS: IMMATURE GRANULOCYTES 8.7 % (0.0-5.0)
[2020-11-11 06:04] LABS: ANION GAP 9 (6-22 (CALC)); BUN 18 mg/dL (8-23); BUN/CREATININE RATIO 16 (12-20 (CALC)); CHLORIDE 109 mmol/l (95-108); CREATININE 1.2 mg/dL (0.7-1.3); GFR 58 ML/MIN (>=60 (CALC)); GFR FOR AFR.AMER. > 60 ML/MIN (>=60 (CALC)); MAGNESIUM 1.8 mg/dL (1.6-2.3); POTASSIUM 4.4 mmol/l (3.5-5.1); SODIUM 137 mmol/l (137-146)
[2020-11-11 06:08] LABS: CARBON DIOXIDE 23 mmol/l (22-30)
--- NOTE | 2020-11-11 07:05 | NUR ---
REPORT RECEIVED FROM BERYL BULL
[2020-11-11 07:38] VITALS: BP 168/69
--- NOTE | 2020-11-11 07:38 | NUR ---
PT FOUND IN BATHROOM WITH CLOTHES COMPLETELY OFF, TELE REMOVED AND OXYGEN REMOVED;PT ASSISTED BACK TO BED WITH X 1 ASSIST;PT A&O X3 AT THIS TIME, PT REPORTS CONFUSION AT TIMES AND STATED "I HAD TO HAVE A BOWEL MOVEMENT" ;VS OBTAINED AND ASSESSMENT COMPLETED;PT DENIES ANY CURRENT PAIN OR DISCOMFORTS,PAIN SCALE AND REPORTING EDUCATED;RESPIRATIONS SHALLOW ON O2 @ 2L VIA NC, WHEEZY/DIMINISHED LUNG SOUNDS WITH NON-PRODUCTIVE COUGH;ABDOMEN SOFT ON PALPATION AND ACTIVE IN ALL 4 QUADRANTS;CATHETER NOTED TO BE DRAINING CLEAR/PINK URINE AND BLOOD NOTED TO INSERTION SITE DUE TO TRAUMA FROM PT REMOVAL THROUGHOUT THE NIGHT, ALEYDA CARE PROVIDED;WEAK PEDAL PULSES;EXCORIATION NOTED TO GROIN FOLDS AND COCCYX-WOUND CARE PROVIDED;RT CHEST PORT INFUSING NS @ 100ML/HR,SITE APPEARS HEALTHY;TELE MONITORING IN PLACE;ACCUCHECK 266, PT COVERED WITH SLIDING SCALE INSULIN PER ORDER;MOM PROVIDED TO ASSIST WITH BOWEL CARE PER PT REQUEST;PT TRANSFERRED TO MED/SURG ROOM 280 FOR CLOSER OBSERVATION;PT DENIES ANY ADDITIONAL NEEDS AND IS ENCOURAGED TO CALL FOR ASSISTANCE IF NEEDED;FALL PRECAUTIONS IN PLACE WITH BED IN THE LOWEST POSITION AND BED ALARM ON FOR SAFETY;CALL LIGHT IN REACH;WILL CONTINUE TO MONITOR
--- NOTE | 2020-11-11 09:40 | NUR ---
PHYSICAL THERAPY AT BEDSIDE WORKING WITH PT.
--- NOTE | 2020-11-11 10:41 | NUR ---
LAB AT [facility]
--- NOTE | 2020-11-11 10:49 | NUR ---
Spoke with pt nurse prior to treatment. He was resting in bed, awake. Pt cooperated with treatment. AROM to LEs performed in supine and sitting 20 reps. Pt moved supine to sit with use of bed rail. Sit to and from standing with supervision. Gait with RW 2x 15' with CGA and assist with IV pole and O2 Pt O2 sat 94 to 98 %, HR 118 max after activity. [facility] 14. Pt left in bed with alarm on, O2 in place, call garcia and bedside tray in reach.
[2020-11-11 10:52] VITALS: BP 161/54
--- NOTE | 2020-11-11 11:00 | NUR ---
PT RESTING IN SEMI FOWLERS POSITION,A&O X3;VS OBTAINED AND ASSESSMENT COMPLETED;PT DENIES ANY CURRENT PAIN OR NEEDS;TELE MONITORING IN PLACE;IV SITE PATENT INFUSING NS @ 100ML/HR;CATHETER PATENT DRAINING TO GRAVITY WITH EASE;ACCUCHECK 277, PT COVERED WITH SLIDING SCALE INSULIN PER ORDER;PT ENCOURAGED TO CALL FOR ASSISTANCE IF NEEDED;FALL PRECAUTIONS REMAIN IN PLACE WITH BED ALARM ON FOR SAFETY;CALL LIGHT IN REACH;WILL CONTINUE TO MONITOR
--- NOTE | 2020-11-11 11:18 | NUR ---
AT BEDSIDE DISCUSSING POC.
--- NOTE | 2020-11-11 12:05 | NUR ---
FIGUEROA CATHETER REMOVED PER ORDER AND PT TOLERATED WELL, URINAL PROVIDED;PARTIAL BED BATH COMPLETED AT THIS TIME WITH LINEN CHANGE. WOUND CARE PROVIDED AT THIS TIME WELL. PT EDUCATED ON PLANS TO D/C HOME WITH HOME HEALTH THIS AFTERNOON AND VERBALIZES UNDERSTANDING;ENCOURAGED TO CALL FOR ASSISTANCE IF NEEDED;CALL LIGHT IN REACH;WILL CONTINUE TO MONITOR
[2020-11-11] MEDS ORDERED: FLECAINIDE50 MG PO (12:47)
[2020-11-11] MEDS ORDERED: HYDROCO/APAP1 TA9 PO (12:49)
--- NOTE | 2020-11-11 13:44 | NUR ---
RIGHT CHEST PORT DEACCESSED BY BERYL SERRANO. PT SATING 93% ON RA AND VOIDED 100CC OF URINE AFTER FIGUEROA REMOVAL.
--- NOTE | 2020-11-11 13:50 | NUR ---
ALL DISCHARGE INSTRUCTIONS PROVIDED AT THIS TIME;PT INSTRUCTED TO F/U WITH PCP AND ONCOLOGIST, TAKE MEDICATIONS PRECRIBED.HOME HEALTH TO FOLLOW. RX FOR FLECADINE AND PERCOCET PROVIDED. PT DENIES ANY ADDITIONAL QUESTIONS OR NEEDS;WC TO BE PROVIDED FOR D/C HOME;[facility] TO TRANSPORT PT HOME.WILL CONTINUE TO MONITOR
--- NOTE | 2020-11-11 14:28 | NUR ---
Discharge instructions given. Patient verbalizes understanding of same. Discharged in stable condition via Wheelchair to Home with family. All belongings sent with pt. PT TRANSPORTED TO [facility] IN STABLE CONDITION VIA ACCOMPANIED BY WRITTER.ALL BELONGINGS LEFT WITH PT INCLUDING RX FOR PERCOCET,FLECOIDE AND RX FOR A WALKER.[facility] TO TRANSPORT PT HOME.
== END 2020-11-11 14:28 | DRG 808 ==
LOC: ED 09:52 → ED-I 12:38 → ED 13:21 → ED-I 13:22 → MS2 13:22 → MSH 16:33 → ED-I 11-07 18:11 → MS2 11-08 17:58
PROVIDERS: Family Medicine; Nurse Practitioner; ADMIT Hospitalist; ATTEND Hospitalist
PROC: 30233R1 Transfusion of Nonautologous Platelets into Peripheral Vein, Percutaneous Approach (ICD-10-PCS; principal; 2020-11-07)
PROC: 30233N1 Transfusion of Nonautologous Red Blood Cells into Peripheral Vein, Percutaneous Approach (ICD-10-PCS; 2020-11-07)
PROC: 0T9B70Z Drainage of Bladder with Drainage Device, Via Natural or Artificial Opening (ICD-10-PCS; 2020-11-10)
DX: D70.3 Neutropenia due to infection (principal); J18.9 Pneumonia, unspecified organism; C20 Malignant neoplasm of rectum; J44.0 Chronic obstructive pulmonary disease with (acute) lower respiratory infection; N17.9 Acute kidney failure, unspecified; D61.810 Antineoplastic chemotherapy induced pancytopenia; T45.1X5A Adverse effect of antineoplastic and immunosuppressive drugs, initial encounter; R50.81 Fever presenting with conditions classified elsewhere; I12.9 Hypertensive chronic kidney disease with stage 1 through stage 4 chronic kidney disease, or unspecified chronic kidney disease; E11.22 Type 2 diabetes mellitus with diabetic chronic kidney disease; N18.30 Chronic kidney disease, stage 3 unspecified; D63.1 Anemia in chronic kidney disease; I48.0 Paroxysmal atrial fibrillation; I45.6 Pre-excitation syndrome; M51.36 Other intervertebral disc degeneration, lumbar region; I65.29 Occlusion and stenosis of unspecified carotid artery; F41.9 Anxiety disorder, unspecified; E03.9 Hypothyroidism, unspecified; E78.5 Hyperlipidemia, unspecified; Z92.21 Personal history of antineoplastic chemotherapy; Z79.4 Long term (current) use of insulin; Z20.822 Contact with and (suspected) exposure to COVID-19; Z66 Do not resuscitate
CPT/HCPCS: J0282; J0692; J1442; J1447; J3370; P9016; P9034

== ENCOUNTER 2020-11-22 12:42 | Emergency (ER) | payer MEDICARE, BC ==
[~2020-11-22] VITALS: Ht 180.3 cm; Wt 100.0 kg
[~2020-11-22 12:42] MED LIST changes: +FLECAINIDE50 MG PO; +HYDROCO/APAP1 TA9 PO; +LOMOTIL2.5 MG PO; +SILVER SULFA1 % EX; +SPIRIVA RE1.25 MCG/A
[2020-11-22 14:09] LABS: HEMATOCRIT 27.1 % (39.0-50.0); HEMOGLOBIN 8.4 g/dl (14.0-18.0); IMMATURE GRANULOCYTES 1.1 % (0.0-5.0); MEAN CELL VOLUME 101.1 fL CALC (80.0-100.0); MEAN CORPUSCULAR HGB 31.3 pG CALC (26.0-32.0); NEUT# 3.44 thou/uL (1.82-7.42); RED BLOOD COUNT 2.68 mill/uL (4.70-6.10); RED CELL DISTRI WIDTH 16.4 % (11.5-15.5)
[2020-11-22 14:22] LABS: ALBUMIN 3.4 g/dL (3.2-5.0); CREATININE 1.5 mg/dL (0.7-1.3); POTASSIUM 4.6 mmol/l (3.5-5.1)
[2020-11-22 14:23] LABS: ACT PARTIAL THROMBO TIME 25.9 SECONDS (20.0-32.5); INTERNATIONAL NORMALIZED RATIO 1.1 RATIO (0.7-1.3); PROTHROMBIN TIME 11.4 SECONDS (9.0-12.5)
[2020-11-22 14:24] LABS: BILIRUBIN, TOTAL 0.6 mg/dL (0.0-1.4)
[2020-11-22] MEDS ORDERED: PERCOCET 10/31 COMBO PO (16:37)
[2020-11-22 17:00] VITALS: BP 144/66
[2020-11-22 17:28] LABS: URINE BILIRUBIN - DIPSTICK NEGATIVE (NEGATIVE); URINE BLOOD DIPSTICK NEGATIVE (NEGATIVE); URINE COLOR YELLOW; URINE GLUCOSE - DIPSTICK 100 mg/dL (NEGATIVE); URINE KETONE TRACE mg/dL (NEGATIVE); URINE LEUK ESTERASE NEGATIVE (NEGATIVE); URINE PROTEIN - DIPSTICK TRACE mg/dL (NEG-TRACE); URINE UROBILINOGEN - DIPSTICK 0.2 E.U./dL (0.2)
[2020-11-22 17:33] LABS: URINE NITRITE - DIPSTICK NEGATIVE (Negative)
== END 2020-11-22 16:57 | disposition home or self-care (01) ==
LOC: ED 12:42
PROVIDERS: Physician Assistant Surgical
DX: K92.1 Melena (principal); K62.89 Other specified diseases of anus and rectum; E11.9 Type 2 diabetes mellitus without complications; Z79.4 Long term (current) use of insulin

== ENCOUNTER 2023-03-06 10:22 | Emergency (ER) | payer MEDICARE, BC ==
[~2023-03-06] VITALS: Ht 180.3 cm; Wt 83.9 kg
[~2023-03-06 10:22] MED LIST changes: +PERCOCET 10/31 COMBO PO
[2023-03-06 10:46] LABS: BASO% 0.2 % (0-3); EOS% 3.1 % (0-8); HEMATOCRIT 34.8 % (39.0-50.0); HEMOGLOBIN 11.3 g/dl (14.0-18.0); IMMATURE GRANULOCYTES 0.2 % (0.0-5.0); LYMPH% 33.2 % (15-41); MEAN CELL VOLUME 103.6 fL CALC (80.0-100.0); MEAN CORPUSCULAR HGB 33.6 pG CALC (26.0-32.0); MEAN CORPUSCULAR HGB CONC 32.5 g/dL CAL (32.0-36.0); MONO% 11.8 % (2-13); NEUT# 2.53 thou/uL (1.82-7.42); NEUT% 51.5 % (42-76); RED BLOOD COUNT 3.36 mill/uL (4.70-6.10); RED CELL DISTRI WIDTH 12.1 % (11.5-15.5)
[2023-03-06 11:15] LABS: ALBUMIN 3.9 g/dL (3.2-5.0); ALKALINE PHOSPHATASE 57 u/l (38-126); ANION GAP 13 (6-22 (CALC)); BILIRUBIN, TOTAL 0.8 mg/dL (0.2-1.3); BUN 29 mg/dL (8-23); BUN/CREATININE RATIO 18 (12-20 (CALC)); CARBON DIOXIDE 21 mmol/l (22-30); CHLORIDE 107 mmol/l (95-108); CREATININE 1.6 mg/dL (0.7-1.3); GFR FOR AFR.AMER. 50 ML/MIN (>=60 (CALC)); GFR OTHER RACES 42 ML/MIN (>=60 (CALC)); SGOT/AST 31 u/l (19-48); SODIUM 137 mmol/l (137-146); TOTAL PROTEIN 6.9 g/dL (6.3-8.2)
[2023-03-06] MEDS ORDERED: CEPHALEXIN500 M1 PO (13:10)
[2023-03-06 13:14] VITALS: BP 137/67
== END 2023-03-06 13:34 | disposition home or self-care (01) ==
LOC: ED 10:22
PROVIDERS: Family Medicine
PROC: 0HQ1XZZ Repair Face Skin, External Approach (ICD-10-PCS; principal; 2023-03-06)
DX: S01.81XA Laceration without foreign body of other part of head, initial encounter (principal); E11.9 Type 2 diabetes mellitus without complications; W01.190A Fall on same level from slipping, tripping and stumbling with subsequent striking against furniture, initial encounter; Y92.009 Unspecified place in unspecified non-institutional (private) residence as the place of occurrence of the external cause; Z79.4 Long term (current) use of insulin

== ENCOUNTER 2023-03-14 10:08 | Emergency (ER) | payer MEDICARE, BC ==
[~2023-03-14 10:08] MED LIST changes: +CEPHALEXIN500 M1 PO
== END 2023-03-14 11:11 | disposition left against medical advice (07) ==
LOC: ED 10:08 → LWOBS 11:11
DX: Z53.21 Procedure and treatment not carried out due to patient leaving prior to being seen by health care provider (principal)

== ENCOUNTER 2023-03-15 07:37 | Emergency (ER) | payer MEDICARE, BC ==
[~2023-03-15] VITALS: Ht 180.3 cm; Wt 83.0 kg
[2023-03-15 08:09] VITALS: BP 140/55
[2023-03-15 08:30] VITALS: BP 130/60
[2023-03-15 09:00] VITALS: BP 130/60
== END 2023-03-15 09:00 | disposition home or self-care (01) ==
LOC: ED 07:37
DX: S01.112D Laceration without foreign body of left eyelid and periocular area, subsequent encounter (principal); X58.XXXD Exposure to other specified factors, subsequent encounter; E11.9 Type 2 diabetes mellitus without complications; Z79.4 Long term (current) use of insulin